=== PATIENT | female | born 1980 | race Caucasian/White ===

== ENCOUNTER 2017-09-11 10:20 | Day surgery (SDC) | payer OTHER ==
[2017-09-10 12:13] LABS: HEMATOCRIT 39.9 % (36.0-47.0); HEMOGLOBIN 13.3 g/dL (12.0-15.5); MEAN CORPUSCULAR HEMOGLOBIN 29.2 pg (27.0-33.4); MEAN CORPUSCULAR HGB CONC 33.3 g/dL (32.0-36.0); MEAN CORPUSCULAR VOLUME 88 fl (80-97); PLATELET COUNT 288 10^3/uL (150-450); RED BLOOD COUNT 4.55 10^6/uL (3.72-5.28); RED CELL DISTRIBUTION WIDTH 13.8 % (11.5-14.0); WHITE BLOOD COUNT 9.4 10^3/uL (4.0-10.5)
[2017-09-10 12:19] LABS: APPEARANCE,URINE SLIGHTLY-CLOUDY; BILIRUBIN,URINE NEGATIVE (NEGATIVE); COLOR,URINE YELLOW; GLUCOSE, URINE NEGATIVE (NEGATIVE); KETONES,URINE NEGATIVE (NEGATIVE); LEUKOCYTE ESTERASE,URINE TRACE (NEGATIVE); NITRITE,URINE NEGATIVE (NEGATIVE); PROTEIN,URINE NEGATIVE (NEGATIVE); URINE SPECIFIC GRAVITY 1.026; UROBILINOGEN,URINE NEGATIVE mg/dL (<2.0)
[~2017-09-11 10:20] MED LIST: LACTATED RINGERS 1000 ML IV PRN; LIDOCAINE 0.5% INJ-PF (5 MG/ML) 50 ML SDV SUBCUT PRN; LIDOCAINE 1%/EPINEPHRINE INJ 20 ML VIAL ONE
[2017-09-11] MEDS ORDERED: DIPHENHYDRAMINE HCL 50 MG/ML VIAL IV PRN (11:47)
[2017-09-11] MEDS ORDERED: PROMETHAZINE HCL INJ 25 MG/1 ML VIAL IV PRN ×2 (11:47)
[2017-09-11] MEDS ORDERED: ONDANSETRON HCL INJ/PF 4 MG/2 ML SDV IV PRN ×2 (11:47→13:42)
[2017-09-11] MEDS ORDERED: MEPERIDINE HCL/PF INJ 25 MG/1 ML DISP.SYRIN IV PRN (11:47)
[2017-09-11] MEDS ORDERED: FENTANYL CITRATE INJ/PF 100 MCG/2 ML AMPUL IV PRN ×3 (11:47)
[2017-09-11] MEDS ORDERED: EPHEDRINE SULFATE INJ 50 MG/1 ML AMPULE ONE (11:55)
[2017-09-11] MEDS ORDERED: MIDAZOLAM 2 MG/2 ML INJ ONE (11:55)
[2017-09-11] MEDS ORDERED: FENTANYL CITRATE INJ/PF 100 MCG/2 ML AMPUL ONE (11:55)
[2017-09-11] MEDS ORDERED: KETAMINE HCL INJ 500 MG/10 ML VIAL ONE (11:55)
[2017-09-11] MEDS ORDERED: DEXMEDETOMIDINE INJ 80 MCG/20 ML VIAL IV ONE (11:56)
[2017-09-11] MEDS ORDERED: PROPOFOL INJ 200 MG/20 ML VIAL IV ONE (11:56)
[2017-09-11] MEDS ORDERED: SCOPOLAMINE HYDROBROMIDE 1.5 MG PATCH.TD72 TD PRN ×3 (12:15→14:16)
[2017-09-11] MEDS ORDERED: HYDROMORPHONE HCL INJ/PF 2 MG/ML AMPULE IV PRN (14:01)
[2017-09-11] MEDS ORDERED: OXYCODONE-ACETAMINOPHEN 5-325 MG TABLET PO PRN ×2 (14:04)
[2017-09-11] MEDS ORDERED: IBUPROFEN 800 MG TABLET PO PRN (14:30)
[2017-09-11] MEDS ORDERED: GLYCOPYRROLATE INJ 0.4 MG/2 ML VIAL ONE (15:10)
[2017-09-11] MEDS ORDERED: ONDANSETRON HCL INJ/PF 4 MG/2 ML SDV ONE (15:10)
[2017-09-11] MEDS ORDERED: DEXAMETHASONE SOD PHOSPHATE INJ 4 MG/1 ML VIAL ONE (15:10)
[2017-09-11] MEDS ORDERED: METOCLOPRAMIDE HCL INJ/PF 10 MG/2 ML SDV ONE (15:10)
[2017-09-11] MEDS ORDERED: KETOROLAC TROMETHAMINE 60 MG/2 ML SDV ONE (15:10)
[2017-09-11] MEDS ORDERED: LIDOCAINE 2% INJ-PF (20 MG/ML) 2 ML AMPUL ONE (15:10)
[2017-09-11 15:44] VITALS: BP 119/64
[2017-09-11] MEDS ORDERED: PROMETHAZINE HCL INJ 25 MG/1 ML VIAL IM ONE (16:00)
[2017-09-11] MEDS ORDERED: ONDANSETRON HCL INJ/PF 4 MG/2 ML SDV IV ONE (16:00)
--- NOTE | 2017-09-12 06:45 | Operative Report ---
Operative Report DATE OF SURGERY: 09/11/17 PREOPERATIVE DIAGNOSIS: Dysfunctional Uterine Bleeding POSTOPERATIVE DIAGNOSIS: NIMCO, Endometrial polyp OPERATION: Paracervical block, Hysteroscopy, Dilation and Currettage, Novasure Endometrial Ablation SURGEON: TONIA HAYWARD ANESTHESIA: LMAC TISSUE REMOVED OR ALTERED: endometrial currettings and polyp COMPLICATIONS: none ESTIMATED BLOOD LOSS: 5 INTRAOPERATIVE FINDINGS: 1x2cm endometrial polyp on anterior surface of uterus. Cavity integrity test good. Uterine cavity length 5cm, width 3cm, Power 83. Ablation time 1min 47sec. On reevaluation with hysteroscope there was approx 2 cm area which was not ablated in the left uterine fundus however the polyp was no longer present and that site was well ablated PROCEDURE: Anesthesia: [Erica Dia MD, Julieth Bae CRNA] IVF: [1000ml] UOP: 100ml drained with straight cath prior to procedure Indications: [37yo with heavy menses for approximately 1 year. Now in the last 2 months has noted 2 or more menses in the month. She has had breast cancer times 2. BRCA negative x 2. Pap smear was normal in 01/2017 and endometrial biopsy was benign without evidence of polyp. has a vasectomy. She has been counseled regarding the procedure. She has also been counseled on the risks, benefits, alternatives to the procedure. She was counseled on the effectiveness of the procedure including amenorrhea versus only improvement of menses. She desires to proceed with planned procedure. ] Procedure: The patient was taken to the Operating Room where general anesthesia was obtained without difficulty. She was prepped and draped in the normal sterile fashion in the dorsal lithotomy position. Exam under anesthesia was performed and noted above. A speculum was placed in the vagina. The anterior cervix was grasped with a single-tooth tenaculum and paracervical block was performed with 8 mL of 1% lidocaine with epinephrine. Sequential dilators were then used to dilate the cervix to accommodate the Myosure hysteroscope. Uterine cavity length was measured 3 times with uterine cavity 5cm. The hysteroscope was then gently advanced into the uterine cavity in the usual fashion with visualization of the endometrial polyp as noted above and the hysteroscope removed since the polyp was small with limited attachment to the anterior uterine body. At this time gentle curettage was performed until a gritty texture was noted and polyp removed. At this time the Novasure endometrial ablation was performed in the usual fashion and was uncomplicated. All instruments were removed from the patient's cervix and vagina. Silver nitrate was applied to the tenaculum site for hemostasis. Sponge lap needle and instrument counts are correct 2. No perioperative antibiotics were given as is not indicated for this procedure. The patient tolerated the procedure well and was taken to the recovery area awake and in stable condition.
== END 2017-09-11 15:40 | disposition home or self-care (01) ==
LOC: OROUT 10:20
PROVIDERS: ATTEND Student in an Organized Health Care Education/Training Program
DX: N92.1 Excessive and frequent menstruation with irregular cycle (principal); N93.8 Other specified abnormal uterine and vaginal bleeding; N84.0 Polyp of corpus uteri; Z88.5 Allergy status to narcotic agent; Z79.899 Other long term (current) drug therapy
CPT/HCPCS: 36415; 85027; 81025; 81001; 88305 ×2; 58563; J2250; J1100; J1885; J3010; J3490 ×3; J2765; J2550; J2405; J2704; 952

== ENCOUNTER 2018-11-04 20:50 | Observation (INO) | payer OTHER ==
[2018-11-04 21:30] LABS: APPEARANCE,URINE CLEAR; BILIRUBIN,URINE NEGATIVE (NEGATIVE); COLOR,URINE YELLOW; GLUCOSE, URINE NEGATIVE (NEGATIVE); KETONES,URINE TRACE mg/dL (NEGATIVE); LEUKOCYTE ESTERASE,URINE NEGATIVE (NEGATIVE); NITRITE,URINE NEGATIVE (NEGATIVE); PROTEIN,URINE NEGATIVE (NEGATIVE); URINE SPECIFIC GRAVITY 1.006; UROBILINOGEN,URINE NEGATIVE mg/dL (<2.0)
[2018-11-04] MEDS ORDERED: ONDANSETRON HCL INJ/PF 4 MG/2 ML SDV IV ONE (22:36)
[2018-11-04] MEDS ORDERED: NORMAL SALINE 1000 ML 1,000 ML IV ONE (22:36)
[2018-11-04] MEDS ORDERED: MORPHINE SULFATE 10 MG/ML INJ IV ONE (22:36)
--- NOTE | 2018-11-04 22:39 | ER Document Report ---
ED Medical Screen (RME) - General Chief Complaint: Abdominal Pain Stated Complaint: ABDOMINAL PAIN Time Seen by Provider: 11/04/18 22:31 Primary Care Provider: CORRINE KRISHNAN FNP [Primary Care Provider] - Follow up as needed Notes: 38-year-old female coming in today chief complaint of abdominal pain started early this morning. Is progressively gotten worse. She is had some vomiting. She is got low-grade fever. I have treated and performed a rapid initial assessment of this patient. A comprehensive ED assessment and evaluation of the patient, analysis of test results and completion of medical decision making process will be conducted by additional ED providers. PHYSICAL EXAMINATION: GENERAL: Nontoxic LUNGS: No respiratory distress HEART: Well perfused ABDOMEN: Right lower quadrant tenderness Extremities: No cyanosis, clubbing, or edema b/l. NEUROLOGICAL: Normal speech, normal gait. PSYCH: Normal mood, normal affect. TRAVEL OUTSIDE OF THE [place] IN LAST 30 DAYS: No - Related Data Allergies/Adverse Reactions: acetaminophen [From Percocet] Allergy (Verified 11/04/18 21:00) ITCHING oxycodone [From Percocet] Allergy (Verified 11/04/18 21:00) ITCHING Past Medical History - Social History Chew tobacco use (# tins/day): No Frequency of alcohol use: None Drug Abuse: None - Past Medical History Cardiac Medical History: Denies: Hx Coronary Artery Disease, Hx Heart Attack, Hx Hypertension Pulmonary Medical History: Denies: Hx Asthma, Hx Bronchitis, Hx COPD, Hx Pneumonia Neurological Medical History: Denies: Hx Cerebrovascular Accident, Hx Seizures Renal/ Medical History: Denies: Hx Peritoneal Dialysis Musculoskeltal Medical History: Denies Hx Arthritis - Immunizations Hx Diphtheria, Pertussis, Tetanus Vaccination: Yes History of Influenza Vaccine for 02/2017 - 07/2017 Season: Yes Influenza Administration Date for 02/2017 - 07/2017 Season: 02/16/17 Physical Exam - Vital signs Vitals: Temp Pulse Resp BP Pulse Ox 100.2 F 99 16 132/78 H 100 11/04/18 21:26 11/04/18 21:26 11/04/18 21:26 11/04/18 21:26 11/04/18 21:26 Course - Vital Signs Vital signs: Temp Pulse Resp BP Pulse Ox 100.2 F 99 16 132/78 H 100 11/04/18 21:26 11/04/18 21:26 11/04/18 21:26 11/04/18 21:26 11/04/18 21:26 - Laboratory Laboratory results interpreted by me: 11/04/18 20:55 Urine Ketones TRACE H Doctor's Discharge - Discharge Referrals: CORRINE KRISHNAN FNP [Primary Care Provider] - Follow up as needed
--- NOTE | 2018-11-05 02:50 | ER Document Report ---
ED GI/ - General Chief Complaint: Abdominal Pain Stated Complaint: ABDOMINAL PAIN Time Seen by Provider: 11/04/18 22:31 Primary Care Provider: CORRINE KRISHNAN FNP [Primary Care Provider] - Follow up as needed Notes: This is a 38-year-old female to the emergency department with a chief complaint of right lower quadrant pain. Patient states that the pain began yesterday around the umbilicus and now has radiated to the right lower quadrant. Cannot get comfortable. Having a low-grade fever at home. No diarrhea. Some nausea and vomiting. Patient is complicated by the fact that she has had breast cancer with a double mastectomy, chemo and radiation. Last mastectomy was in 2013. As far she knows there is no metastatic lesions. TRAVEL OUTSIDE OF THE [place] IN LAST 30 DAYS: No - HPI Patient complains to provider of: Abdominal pain Onset: Yesterday Timing/Duration: Gradual Quality of pain: Throbbing Severity at maximum: Moderate Severity in ED: Moderate Pain Level: 4 Location: RLQ Vaginal bleeding (Compared to normal period): None - Related Data Allergies/Adverse Reactions: acetaminophen [From Percocet] Allergy (Verified 11/04/18 21:00) ITCHING oxycodone [From Percocet] Allergy (Verified 11/04/18 21:00) ITCHING Past Medical History - General Information source: Patient - Social History Smoking Status: Never Smoker Chew tobacco use (# tins/day): No Frequency of alcohol use: None Drug Abuse: None Lives with: Spouse/Significant other Family History: Reviewed & Not Pertinent Patient has suicidal ideation: No Patient has homicidal ideation: No - Past Medical History Cardiac Medical History: Denies: Hx Coronary Artery Disease, Hx Heart Attack, Hx Hypertension Pulmonary Medical History: Denies: Hx Asthma, Hx Bronchitis, Hx COPD, Hx Pneumonia Neurological Medical History: Denies: Hx Cerebrovascular Accident, Hx Seizures Renal/ Medical History: Denies: Hx Peritoneal Dialysis Malignancy Medical History: Reports: Hx Breast Cancer Musculoskeletal Medical History: Denies Hx Arthritis Surgical Hx: Other - Lumpectomy with double mastectomy - Immunizations Hx Diphtheria, Pertussis, Tetanus Vaccination: Yes Review of Systems - Review of Systems Notes: Constitutional: denies: Chills, Diaphoresis, +Fever, Malaise, Weakness EENT: denies: Eye discharge, Blurred vision, Tearing, Double vision, Nose congestion, Nose discharge, Throat swelling, Mouth pain Cardiovascular: denies: Palpitations, Heart racing, Orthopnea, Dyspnea, Chest pain Respiratory: denies: Cough, Hurts to breathe, Wheezing, Shortness of breath Gastrointestinal: Positive for abdominal pain, right lower quadrant abdominal pain, nausea and vomiting. No diarrhea. Genitourinary: denies: Burning, Dysuria, Discharge, Frequency, Flank pain, Hematuria Musculoskeletal: denies: Joint pain, Joint swelling, Muscle pain, Muscle stiffness, back pain Hematologic/Lymphatic: denies: Anemia, Easy bleeding, Easy bruising, Blood clots Neurological/Psychological: denies: Confusion, Dementia, Depression, Loss of consciousness Skin: No lesions, no masses, no skin breakdown, no abscesses Physical Exam - Vital signs Vitals: Temp Pulse Resp BP Pulse Ox 100.2 F 99 16 132/78 H 100 11/04/18 21:26 11/04/18 21:26 11/04/18 21:26 11/04/18 21:26 11/04/18 21:26 Interpretation: Normal, Tachycardic - General General appearance: Appears well, Alert - HEENT Head: Normocephalic, Atraumatic Eyes: Normal Pupils: PERRL - Respiratory Respiratory status: No respiratory distress Chest status: Nontender Breath sounds: Normal Chest palpation: Normal - Cardiovascular Rhythm: Regular Heart sounds: Normal auscultation Murmur: No - Abdominal Inspection: Normal Distension: No distension Bowel sounds: Normal Tenderness: Tender, Guarding, Rebound Organomegaly: No organomegaly - Back Back: Normal, Nontender - Extremities General upper extremity: Normal inspection, Nontender, Normal color, Normal ROM, Normal temperature General lower extremity: Normal inspection, Nontender, Normal color, Normal ROM, Normal temperature, Normal weight bearing. No: Tahir's sign - Neurological Neuro grossly intact: Yes Cognition: Normal Orientation: AAOx4 [place] Coma Scale Eye Opening: Spontaneous [place] Coma Scale Verbal: Oriented [place] Coma Scale Motor: Obeys Commands Candy Coma Scale Total: 15 Speech: Normal Motor strength normal: LUE, RUE, LLE, RLE Sensory: Normal - Psychological Associated symptoms: Normal affect, Normal mood - Skin Skin Temperature: Warm Skin Moisture: Dry Skin Color: Normal Course - Re-evaluation Re-evalutation: 11/05/18 03:42 Laboratory 0611/04/18 11/05/18 20:55 20:55 00:56 WBC RBC Hgb Hct MCV MCH MCHC RDW Plt Count Seg Neutrophils % Lymphocytes % Monocytes % Eosinophils % Basophils % Absolute Neutrophils Absolute Lymphocytes Absolute Monocytes Absolute Eosinophils Absolute Basophils Sodium Cancelled Potassium Cancelled Chloride Cancelled Carbon Dioxide Cancelled Anion Gap Cancelled BUN Cancelled Creatinine Cancelled Est GFR ( Amer) Cancelled Est GFR (Non-Af Amer) Cancelled Glucose Cancelled Calcium Cancelled Total Bilirubin Cancelled Direct Bilirubin Cancelled Neonat Total Bilirubin Cancelled Neonat Direct Bilirubin Cancelled Neonat Indirect Bili Cancelled AST Cancelled ALT Cancelled Alkaline Phosphatase Cancelled Total Protein Cancelled Albumin Cancelled Urine Color YELLOW Urine Appearance CLEAR Urine pH 7.0 Ur Specific [place] 1.006 Urine Protein NEGATIVE Urine Glucose (UA) NEGATIVE Urine Ketones TRACE H Urine Blood NEGATIVE Urine Nitrite NEGATIVE Urine Bilirubin NEGATIVE Urine Urobilinogen NEGATIVE Ur Leukocyte Esterase NEGATIVE Urine WBC (Auto) 1 Urine RBC (Auto) 1 Squamous Epi Cells Auto <1 Urine Mucus (Auto) RARE Urine Ascorbic Acid NEGATIVE Urine HCG, Qual NEGATIVE 11/05/18 11/05/18 03:00 03:00 WBC 14.6 H RBC 4.33 Hgb 12.7 Hct 38.5 MCV 89 MCH 29.4 MCHC 33.0 RDW 14.2 H Plt Count 220 Seg Neutrophils % 84.5 H Lymphocytes % 7.5 L Monocytes % 7.3 Eosinophils % 0.1 Basophils % 0.6 Absolute Neutrophils 12.4 H Absolute Lymphocytes 1.1 Absolute Monocytes 1.1 Absolute Eosinophils 0.0 Absolute Basophils 0.1 Sodium 139.3 Potassium 3.6 Chloride 105 Carbon Dioxide 25 Anion Gap 9 BUN 6 L Creatinine 0.61 Est GFR ( Amer) > 60 Est GFR (Non-Af Amer) > 60 Glucose 114 H Calcium 9.4 Total Bilirubin 0.6 Direct Bilirubin 0.2 Neonat Total Bilirubin Not Reportable Neonat Direct Bilirubin Not Reportable Neonat Indirect Bili Not Reportable AST 13 L ALT 26 Alkaline Phosphatase 50 Total Protein 6.9 Albumin 4.4 Urine Color Urine Appearance Urine pH Ur Specific [place] Urine Protein Urine Glucose (UA) Urine Ketones Urine Blood Urine Nitrite Urine Bilirubin Urine Urobilinogen Ur Leukocyte Esterase Urine WBC (Auto) Urine RBC (Auto) Squamous Epi Cells Auto Urine Mucus (Auto) Urine Ascorbic Acid Urine HCG, Qual Patient is extremely tender in the right lower quadrant with his WBC count was elevated and a low-grade fever. Clinically patient has appendicitis. General surgery has been called. I am proceeding with a CT scan with oral and IV contrast she has had a malignancy and eating better images to make sure that she has no metastasis or other pathological etiology can be ruled out more effectively. Dr. Hazel agrees with this plan as well. I am medicating at this time with antibiotics, IV fluids, pain medication and nausea medicine. Patient has been signed over to my colleague Dr. Saleh for review of CT scan and consultation with surgery after results - Vital Signs Vital signs: Temp Pulse Resp BP Pulse Ox 100.2 F 99 16 132/78 H 100 11/04/18 21:26 11/04/18 21:26 11/04/18 21:26 11/04/18 21:26 11/04/18 21:26 - Laboratory Result Diagrams: 11/05/18 03:00 11/05/18 03:00 Laboratory results interpreted by me: 11/04/18 11/05/18 11/05/18 20:55 03:00 03:00 WBC 14.6 H RDW 14.2 H Seg Neutrophils % 84.5 H Lymphocytes % 7.5 L Absolute Neutrophils 12.4 H BUN 6 L Glucose 114 H AST 13 L Urine Ketones TRACE H Discharge - Discharge Clinical Impression: Right lower quadrant pain Condition: Good Disposition: ADMITTED INPATIENT Referrals: CORRINE KRISHNAN FNP [Primary Care Provider] - Follow up as needed
[2018-11-05 03:15] LABS: ABSOLUTE BASOPHILS # (AUTO) 0.1 10^3/uL (0.0-0.2); ABSOLUTE LYMPHOCYTES (AUTO) 1.1 10^3/uL (0.5-4.7); ABSOLUTE MONOCYTES (AUTO) 1.1 10^3/uL (0.1-1.4); ABSOLUTE NEUT (AUTO) 12.4 10^3/uL (1.7-8.2); BASOPHILS % (AUTO) 0.6 % (0-2); EOSINOPHILS % (AUTO) 0.1 % (0-6); HEMATOCRIT 38.5 % (36.0-47.0); HEMOGLOBIN 12.7 g/dL (12.0-15.5); LYMPHOCYTES % (AUTO) 7.5 % (13-45); MEAN CORPUSCULAR HEMOGLOBIN 29.4 pg (27.0-33.4); MEAN CORPUSCULAR VOLUME 89 fl (80-97); MONOCYTES % (AUTO) 7.3 % (3-13); PLATELET COUNT 220 10^3/uL (150-450); RED BLOOD COUNT 4.33 10^6/uL (3.72-5.28); RED CELL DISTRIBUTION WIDTH 14.2 % (11.5-14.0); SEGMENTED NEUTROPHILS % (AUTO) 84.5 % (42-78); TOTAL CELLS COUNTED % (AUTO) 100 %; WHITE BLOOD COUNT 14.6 10^3/uL (4.0-10.5)
[2018-11-05 03:37] LABS: ALANINE AMINOTRANSFERASE 26 U/L (9-52); ALBUMIN 4.4 g/dL (3.5-5.0); ALKALINE PHOSPHATASE 50 U/L (38-126); ANION GAP 9 (5-19); ASPARTATE AMINO TRANSFERASE 13 U/L (14-36); BILIRUBIN,DIRECT 0.2 mg/dL (0.0-0.4); BILIRUBIN,TOTAL 0.6 mg/dL (0.2-1.3); BLOOD UREA NITROGEN 6 mg/dL (7-20); CALCIUM 9.4 mg/dL (8.4-10.2); CARBON DIOXIDE 25 mmol/L (22-30); CHLORIDE 105 mmol/L (98-107); GLUCOSE 114 mg/dL (75-110); POTASSIUM 3.6 mmol/L (3.6-5.0); SODIUM 139.3 mmol/L (137-145); TOTAL PROTEIN 6.9 g/dL (6.3-8.2)
[2018-11-05] MEDS ORDERED: ONDANSETRON HCL INJ/PF 4 MG/2 ML SDV IV ONE ×2 (03:38→05:03)
[2018-11-05] MEDS ORDERED: DEXTROSE 5%-1/2 NORMAL SALINE 1,000 ML IV ONE (03:38)
[2018-11-05] MEDS ORDERED: HYDROMORPHONE HCL INJ/PF 2 MG/ML AMPULE IV PRN (03:39)
[2018-11-05] MEDS ORDERED: CEFOXITIN 1 GM/D5W RTU 1 GM/50 ML RTUPB IV ONE (03:42)
--- NOTE | 2018-11-05 05:48 | ER Document Report ---
Entered by EDUARDO PATINO SCRIBE 11/05/18 0541 Acting as scribe for:DAVONTE BRONSON MD ED General - General Chief Complaint: Abdominal Pain Stated Complaint: ABDOMINAL PAIN Time Seen by Provider: 11/04/18 22:31 Primary Care Provider: CORRINE KRISHNAN FNP [Primary Care Provider] - Follow up as needed Mode of Arrival: Ambulatory Information source: Patient Notes: Patient is a 38 year old female with a history of DCIS (chemo, radiation and double mastectomy) presents to the emergency department complaining of abdominal pain with associated nausea and vomiting onset yesterday. Patient states she woke up around 0300 with periumbilical abdominal pain. She states throughout the day she developed nausea and vomiting and the pain migrated to her RLQ. She denies any other focal symptoms. TRAVEL OUTSIDE OF THE [place] IN LAST 30 DAYS: No - Related Data Allergies/Adverse Reactions: acetaminophen [From Percocet] Allergy (Verified 11/04/18 21:00) ITCHING oxycodone [From Percocet] Allergy (Verified 11/04/18 21:00) ITCHING Past Medical History - General Information source: Patient - Social History Smoking Status: Never Smoker Chew tobacco use (# tins/day): No Frequency of alcohol use: None Drug Abuse: None Lives with: Spouse/Significant other Family History: Reviewed & Not Pertinent Patient has suicidal ideation: No Patient has homicidal ideation: No Malignancy Medical History: Reports: Hx Breast Cancer - DCIS, lumpectomy, double mastectomy Past Surgical History: Reports: Hx Breast Surgery - Lumpectomy with double mastectomy - Immunizations Hx Diphtheria, Pertussis, Tetanus Vaccination: Yes Review of Systems - Review of Systems Constitutional: No symptoms reported EENT: No symptoms reported Cardiovascular: No symptoms reported Gastrointestinal: See HPI, Abdominal pain, Nausea, Vomiting Genitourinary: No symptoms reported Female Genitourinary: No symptoms reported Musculoskeletal: No symptoms reported Skin: No symptoms reported Hematologic/Lymphatic: No symptoms reported Neurological/Psychological: No symptoms reported -: Yes All other systems reviewed and negative Physical Exam - Vital signs Vitals: Temp Pulse Resp BP Pulse Ox 100.2 F 99 16 132/78 H 100 11/04/18 21:26 11/04/18 21:26 11/04/18 21:26 11/04/18 21:26 11/04/18 21:26 - Notes Notes: GENERAL: Alert, interacts well. No acute distress. HEAD: Normocephalic, atraumatic. EYES: Pupils equal, round, and reactive to light. Extraocular movements intact. ENT: Oral mucosa moist, tongue midline. NECK: Full range of motion. Supple. Trachea midline. LUNGS: Clear to auscultation bilaterally, no wheezes, rales, or rhonchi. No respiratory distress. HEART: Regular rate and rhythm. No murmurs, gallops, or rubs. ABDOMEN: Soft. Right lower quadrant tenderness with guarding and rebound. Bowel sounds are decreased. EXTREMITIES: Moves all 4 extremities spontaneously. NEUROLOGICAL: Alert and oriented x3. Normal speech. PSYCH: Normal affect, normal mood. SKIN: Warm, dry, normal turgor. No rashes or lesions noted. Course - Re-evaluation Re-evalutation: 11/05/18 05:44 Patient was signed out to me by Dr. Wilson. - Vital Signs Vital signs: Temp Pulse Resp BP Pulse Ox 98.3 F 88 16 97/40 L 98 11/05/18 03:00 11/05/18 03:00 11/05/18 03:00 11/05/18 03:00 11/05/18 03:00 - Laboratory Result Diagrams: 11/05/18 03:00 11/05/18 03:00 Laboratory results interpreted by me: 11/04/18 11/05/18 11/05/18 20:55 03:00 03:00 WBC 14.6 H RDW 14.2 H Seg Neutrophils % 84.5 H Lymphocytes % 7.5 L Absolute Neutrophils 12.4 H BUN 6 L Glucose 114 H AST 13 L Urine Ketones TRACE H - Diagnostic Test Radiology reviewed: Image reviewed, Reports reviewed - CT scan shows acute a ppendicitis - Consults Dr. Hazel Time consulted: 06:00 Consulted provider: will come to ER Discharge - Discharge Clinical Impression: Acute appendicitis Qualifiers: Acute appendicitis type: with localized peritonitis Appendicitis gangrene presence: unspecified whether gangrene present Appendicitis perforation presence: without perforation Appendicitis abscess presence: without abscess Qualified Code(s): K35.30 - Acute appendicitis with localized peritonitis, without perforation or gangrene Condition: Good Disposition: ADMITTED INPATIENT Admitting Provider: Surgicalist Unit Admitted: Surgical Floor Referrals: CORRINE KRISHNAN FNP [Primary Care Provider] - Follow up as needed Scribe Attestation: 11/05/18 06:08 I personally performed the services described in the documentation, reviewed and edited the documentation which was dictated to the scribe in my presence, and it accurately records my words and actions. I personally performed the services described in the documentation, reviewed and edited the documentation which was dictated to the scribe in my presence, and it accurately records my words and actions.
--- NOTE | 2018-11-05 06:05 | RADIOLOGY REPORT (SQ) ---
EXAM DESCRIPTION: CT ABDOMEN PELVIS WITH IV CONTRAST COMPLETED DATE/TME: 11/05/2018 00:00 CLINICAL HISTORY: 38 years Female, rlq pain. HCG NEGATIVE Comparison: None. Technique: IV and oral contrast. Coronal and sagittal reformat. This exam was performed according to our departmental dose-optimization program, which includes automated exposure control, adjustment of the mA and/or kV according to patient size and/or use of iterative reconstruction technique. [facility]: Dose Right [facility]: CareDose [facility]: Dose Right [facility]: Teradose 4D [facility]: angelcam LIMITATIONS: None Findings: Acute appendicitis includes an inflamed, 1.2 cm diameter fluid filled appendix, appendicolith, mild lymphadenopathy, and no significant ascites. No abscess. No pneumoperitoneum. Mammary prostheses. Small L4-L5 disc bulge. No bowel obstruction. No hydronephrosis or hydroureter. No renal/ureteral stone. No evidence of abdominal aortic aneurysm. Inferior thorax, liver, gallbladder, pancreas, spleen, adrenals, renal system, gastrointestinal tract, pelvic organs, lymphatics, vasculature, and musculoskeleton appear otherwise unremarkable. IMPRESSION: Acute appendicitis.
[2018-11-05] MEDS ORDERED: FENTANYL CITRATE INJ/PF 100 MCG/2 ML AMPUL IV ONE (06:09)
--- NOTE | 2018-11-05 06:49 | PDOC H&P ---
History of Present Illness Admission Date/PCP: MARVEL HERNANDEZ Patient complains of: Right lower quadrant abdominal pain History of Present Illness: CECI SLATER is a 38 year old female with a 24-hour history of epigastric abdominal pain that has migrated to her right lower quadrant. It is 8/10 in intensity. It is sharp and stabbing. She has experienced nausea and vomiting with it. The pain is unrelenting. Nothing makes it better. Movement and palpa tion make it worse. She denies chest pain, shortness of breath, fevers, chills, dizziness, blurry vision, hearing difficulty, headache, orthostasis. The patient was evaluated in the emergency department where CT scan was performed. I was then consulted for definitive surgical care. Past Medical History Cardiac Medical History: Denies: Coronary Artery Disease, Myocardial Infarction, Hypertension Pulmonary Medical History: Denies: Asthma, Bronchitis, Chronic Obstructive Pulmonary Disease (COPD), Pneumonia Neurological Medical History: Denies: Seizures Malignancy Medical History: Reports: Breast Cancer - DCIS, lumpectomy, double mastectomy Musculoskeltal Medical History: Denies: Arthritis Hematology: Denies: Anemia Past Surgical History Past Surgical History: Reports: Mastectomy - With reconstruction Social History Lives with: Spouse/Significant other Smoking Status: Never Smoker Frequency of Alcohol Use: None Hx Recreational Drug Use: No Drugs: None Hx Prescription Drug Abuse: No Family History Family History: Reviewed & Not Pertinent Parental Family History Reviewed: Yes Children Family History Reviewed: Yes Sibling(s) Family History Reviewed.: Yes Medication/Allergy Home Medications: Bupropion HCl [Wellbutrin Sr] 150 mg PO DAILY 09/10/17 Allergies/Adverse Reactions: acetaminophen [From Percocet] Allergy (Verified 11/04/18 21:00) ITCHING oxycodone [From Percocet] Allergy (Verified 11/04/18 21:00) ITCHING Review of Systems Constitutional: PRESENT: anorexia, fever(s). ABSENT: chills, fatigue Eyes: ABSENT: visual disturbances Ears: ABSENT: hearing changes Nose, Mouth, and Throat: ABSENT: mouth pain, sore throat Cardiovascular: ABSENT: chest pain, dyspnea on exertion Respiratory: ABSENT: cough, dyspnea Gastrointestinal: PRESENT: abdominal pain, nausea, vomiting. ABSENT: heartburn, hematemesis, hematochezia, melena Genitourinary: ABSENT: dysuria Musculoskeletal: ABSENT: back pain Integumentary: ABSENT: pruritus, rash Neurological: ABSENT: confusion, convulsions, dizziness Psychiatric: PRESENT: anxiety, depression Endocrine: ABSENT: cold intolerance, heat intolerance Hematologic/Lymphatic: ABSENT: easy bleeding, easy bruising Physical Exam Vital Signs: Temp Pulse Resp BP Pulse Ox 98.3 F 88 16 97/40 L 98 11/05/18 03:00 11/05/18 03:00 11/05/18 03:00 11/05/18 03:00 11/05/18 03:00 Intake & Output 11/03/18 11/04/18 11/05/18 06:59 06:59 06:59 Intake Total 1000 Balance 1000 Weight 68.9 kg General appearance: PRESENT: no acute distress, cooperative Head exam: PRESENT: atraumatic, normocephalic Eye exam: PRESENT: EOMI, PERRLA. ABSENT: scleral icterus Mouth exam: PRESENT: neck supple Teeth exam: ABSENT: poor dentation Neck exam: ABSENT: meningismus, tenderness, thyromegaly, tracheal deviation Respiratory exam: PRESENT: clear to auscultation katherine, unlabored. ABSENT: chest wall tenderness, tachypnea, wheezes Cardiovascular exam: PRESENT: RRR Pulses: PRESENT: normal radial pulses Vascular exam: PRESENT: normal capillary refill GI/Abdominal exam: PRESENT: rebound - Mild, soft, tenderness - Right lower quadrant. ABSENT: distended Rectal exam: PRESENT: deferred Extremities exam: ABSENT: clubbing Musculoskeletal exam: ABSENT: deformity Neurological exam: PRESENT: alert, awake, oriented to person, oriented to place, oriented to time, oriented to situation Psychiatric exam: ABSENT: agitated, anxious, depressed Focused psych exam: ABSENT: delusional Skin exam: ABSENT: cyanosis, erythema, jaundice Results Laboratory Results: 11/05/18 03:00 11/05/18 03:00 11/04/18 11/05/18 11/05/18 20:55 00:56 03:00 WBC 14.6 H RBC 4.33 Hgb 12.7 Hct 38.5 MCV 89 MCH 29.4 MCHC 33.0 RDW 14.2 H Plt Count 220 Seg Neutrophils % 84.5 H Lymphocytes % 7.5 L Monocytes % 7.3 Eosinophils % 0.1 Basophils % 0.6 Absolute Neutrophils 12.4 H Absolute Lymphocytes 1.1 Absolute Monocytes 1.1 Absolute Eosinophils 0.0 Absolute Basophils 0.1 Sodium Cancelled Potassium Cancelled Chloride Cancelled Carbon Dioxide Cancelled Anion Gap Cancelled BUN Cancelled Creatinine Cancelled Est GFR ( Amer) Cancelled Est GFR (Non-Af Amer) Cancelled Glucose Cancelled Calcium Cancelled Total Bilirubin Cancelled AST Cancelled ALT Cancelled Alkaline Phosphatase Cancelled Total Protein Cancelled Albumin Cancelled Urine Color YELLOW Urine Appearance CLEAR Urine pH 7.0 Ur Specific [place] 1.006 Urine Protein NEGATIVE Urine Glucose (UA) NEGATIVE Urine Ketones TRACE H Urine Blood NEGATIVE Urine Nitrite NEGATIVE Ur Leukocyte Esterase NEGATIVE Urine WBC (Auto) 1 Urine RBC (Auto) 1 11/05/18 03:00 WBC RBC Hgb Hct MCV MCH MCHC RDW Plt Count Seg Neutrophils % Lymphocytes % Monocytes % Eosinophils % Basophils % Absolute Neutrophils Absolute Lymphocytes Absolute Monocytes Absolute Eosinophils Absolute Basophils Sodium 139.3 Potassium 3.6 Chloride 105 Carbon Dioxide 25 Anion Gap 9 BUN 6 L Creatinine 0.61 Est GFR ( Amer) > 60 Est GFR (Non-Af Amer) > 60 Glucose 114 H Calcium 9.4 Total Bilirubin 0.6 AST 13 L ALT 26 Alkaline Phosphatase 50 Total Protein 6.9 Albumin 4.4 Urine Color Urine Appearance Urine pH Ur Specific [place] Urine Protein Urine Glucose (UA) Urine Ketones Urine Blood Urine Nitrite Ur Leukocyte Esterase Urine WBC (Auto) Urine RBC (Auto) Impressions: Abdomen/Pelvis CT 11/05/18 00:00 IMPRESSION: Acute appendicitis. Assessment & Plan - Diagnosis (1) Acute appendicitis Qualifiers: Acute appendicitis type: with localized peritonitis Appendicitis gangrene presence: unspecified whether gangrene present Appendicitis perforation presence: without perforation Appendicitis abscess presence: without abscess Qualified Code(s): K35.30 - Acute appendicitis with localized peritonitis, w ithout perforation or gangrene Is this a current diagnosis for this admission?: Yes - Plan Summary Plan Summary: This is a 38-year-old female with acute appendicitis. She has history, physical, and laboratory findings consistent with the diagnosis. I reviewed her CT scan. She has an inflamed appendix, without sign of obvious perforation or abscess. I have discussed surgical intervention with her. She has agreed to laparoscopic versus open appendectomy. Risks/benefits discussed, informed consent obtained, and all questions answered.
[2018-11-05] MEDS ORDERED: ONDANSETRON HCL INJ/PF 4 MG/2 ML SDV IV PRN ×2 (06:57→10:33)
[2018-11-05] MEDS ORDERED: BUPIVACAINE HCL 0.25 % INJ/PF (2.5 MG/1 ML) 30 ML VIAL ONE (08:39)
[2018-11-05] MEDS ORDERED: SCOPOLAMINE HYDROBROMIDE 1.5 MG PATCH.TD72 ONE (09:44)
[2018-11-05] MEDS ORDERED: KETOROLAC TROMETHAMINE 60 MG/2 ML SDV ONE (09:57)
[2018-11-05] MEDS ORDERED: PROMETHAZINE HCL INJ 25 MG/1 ML VIAL ONE (09:58)
[2018-11-05] MEDS ORDERED: DEXAMETHASONE SOD PHOSPHATE INJ 4 MG/1 ML VIAL ONE (09:58)
[2018-11-05] MEDS ORDERED: ONDANSETRON HCL INJ/PF 4 MG/2 ML SDV ONE (09:58)
[2018-11-05] MEDS ORDERED: PROPOFOL INJ 200 MG/20 ML VIAL IV ONE (09:58)
[2018-11-05] MEDS ORDERED: MIDAZOLAM 2 MG/2 ML INJ ONE (09:58)
[2018-11-05] MEDS ORDERED: FENTANYL CITRATE INJ/PF 100 MCG/2 ML AMPUL ONE (09:58)
[2018-11-05] MEDS ORDERED: DIPHENHYDRAMINE HCL 50 MG/ML VIAL IV PRN (10:33)
[2018-11-05] MEDS ORDERED: MEPERIDINE HCL/PF INJ 25 MG/1 ML DISP.SYRIN IV PRN (10:33)
[2018-11-05] MEDS ORDERED: FENTANYL CITRATE INJ/PF 100 MCG/2 ML AMPUL IV PRN ×3 (10:33)
[2018-11-05] MEDS ORDERED: MORPHINE SULFATE 10 MG/ML INJ IV PRN (10:33)
[2018-11-05] MEDS ORDERED: PROMETHAZINE HCL INJ 25 MG/1 ML VIAL IV PRN (10:33)
--- NOTE | 2018-11-05 12:44 | OPERATIVE REPORT E ---
Operative Report NAME: CECI SLATER : 1980 AGE: 38Y DATE OF SURGERY: 11/05/2018 ROOM: ED09 PREOPERATIVE DIAGNOSIS: ACUTE APPENDICITIS. POSTOPERATIVE DIAGNOSIS: ACUTE GANGRENOUS APPENDICITIS. OPERATION: Laparoscopic appendectomy. SURGEON: ADAL GUERRA M.D. ANESTHESIA: General. INDICATION: This is a 38-year-old female complaining of right lower quadrant pains since yesterday. She had a CAT scan of the abdomen early this morning which showed acute appendicitis. Her white count was slightly elevated and markedly tender in the right lower quadrant. The rest of the abdomen is soft. PROCEDURE: After adequate general anesthesia, patient was placed in the supine position and the abdomen prepped and draped in the usual sterile fashion. Appropriate timeout was called. Next, an infraumbilical incision was made and the fascia identified and opened and Eckert trocar inserted into the abdominal cavity. CO2 insufflated to a pressure of 15 mmHg of mercury and 2 other trocars were placed. A 5 mm in the suprapubic and a 12 mm in the left lower quadrant under direct vision. The appendix was then noted to be adherent to the right lateral gutter area and this was bluntly released with a grasper. The tip of the appendix appears to be not involved but the main part of the appendix appears to be gangrenous. With the use of a [place] dissector a window was placed close to the junction of the appendix and the cecum. Next, the mesoappendix was then cauterized and divided with the use of Harmonic melissa. Adequate hemostasis noted. Next, the appendix was then lifted up and with the use of a 45 mm endo LAVERNE, the base of the appendix close to the cecum which was not involved, was then stapled and divided. Appendix was then placed in an endo bag and pulled out through the umbilical port area. Next, the Eckert trocar was placed back and the stump of the appendix inspected. No evidence of bleeding noted. No evidence of any fluid or bleeding and therefore not irrigated. Next, all of the trocars removed and CO2 allowed to come out of the trocar sites. The fascial defect was then closed with a figure-of-8 suture using 0-Vicryl and the 2 stay sutures that were placed earlier were then tied together to reinforce the closure. The subcutaneous area was irrigated with saline solution. Next, all of the skin incisions were then closed with running subcuticular 4-0 Vicryl undyed. Steri-Strips placed over the operative site. Needle, instruments and sponge count all correct and estimated blood loss was no more than 5 mL. Patient brought to the recovery room and extubated in satisfactory condition. DICTATING PHYSICIAN: ADAL GUERRA M.D. [id number] PHY#: [id number] ID: [id number] JOB#: [id number] ACCT: [id number] cc:ADAL GUERRA M.D. > MTDD
[2018-11-05] MEDS: MORPHINE SULFATE 10 MG/ML INJ IV PRN ×2 (12:49→20:55)
[2018-11-05] MEDS: NORMAL SALINE 1000 ML 1,000 ML IV PRN (12:50)
[2018-11-05] MEDS ORDERED: CEFOXITIN SODIUM 2 GM in DEXTROSE 5%-WATER 100 ML IV SCH (14:00)
[2018-11-05] MEDS ORDERED: ROCURONIUM BROMIDE INJ 50 MG/5 ML VIAL IV ONE (16:10)
[2018-11-05] MEDS ORDERED: SUCCINYLCHOLINE CHLORIDE INJ 200 MG/10 ML VIAL ONE (16:10)
[2018-11-05] MEDS: KETOROLAC TROMETHAMINE INJ/PF 30 MG/1 ML SDV IV SCH (18:13)
[2018-11-05] MEDS: PIPERACILLIN SODIUM/TAZOBACTAM 3.375 GM in NORMAL SALINE 100 ML IV SCH (18:14)
[2018-11-06] MEDS: PIPERACILLIN SODIUM/TAZOBACTAM 3.375 GM in NORMAL SALINE 100 ML IV SCH ×2 (00:16→05:33)
[2018-11-06] MEDS: NORMAL SALINE 1000 ML 1,000 ML IV PRN (00:16)
[2018-11-06] MEDS: KETOROLAC TROMETHAMINE INJ/PF 30 MG/1 ML SDV IV SCH ×2 (00:16→05:32)
[2018-11-06 10:59] VITALS: BP 97/40
--- NOTE | 2018-11-06 14:14 | DISCHARGE SUMMARY E ---
Discharge Summary NAME: CECI SLATER : 1980 AGE: 38Y ADMITTED: 11/05/2018 DISCHARGED: 11/06/2018 PROCEDURE DONE: Laparoscopic appendectomy. FINAL DIAGNOSIS: Acute appendicitis, appendectomy done 11/05/2018. SURGEON: Dr. Cardona [facility] COURSE: This is a 38-year-old female complaining of abdominal pain for the pasts 24 hours prior to admission. When seen in the ED her pain was localized in the right lower quadrant and a CAT scan showed acute appendicitis. She was then taken to the OR on the same day of admission. On laparoscopic appendectomy she was noted to have a gangrenous acute appendicitis. Postoperatively she did very well passing flatus and tolerating diet. She was then discharged improved on 11/06/2018. The patient will be followed up in the surgical clinic in 2 weeks. She was given a prescription for Toradol 10 mg p.o. q.6 hours p.r.n. for pain. She was advised not to do any lifting more than 10 to 15 pounds until seen in the clinic. DICTATING PHYSICIAN: ADAL CARDONA M.D. [id number] PHY#: [id number] ID: [id number] JOB#: [id number] ACCT: [id number] cc:Kane MOSER M.D. >
== END 2018-11-06 11:06 | disposition home or self-care (01) ==
LOC: ER 20:50 → INTOOBSV 11-05 06:37 → EH 11-05 06:37 → 4N 11-05 12:30
PROVIDERS: ADMIT Surgery; ATTEND Surgery
PROC: 0DTJ4ZZ Resection of Appendix, Percutaneous Endoscopic Approach (ICD-10-PCS; principal; 2018-11-05 10:30)
DX: K35.31 Acute appendicitis with localized peritonitis and gangrene, without perforation (principal); K38.1 Appendicular concretions; Z85.3 Personal history of malignant neoplasm of breast; Z90.13 Acquired absence of bilateral breasts and nipples; Z88.8 Allergy status to other drugs, medicaments and biological substances
CPT/HCPCS: 36415; 74177; 80053; 81001; 81025; 840; 85025; 87040; 87086; 88304; 96361; 96365; 96366; 96375; 96376; 99285; G0378; J0330; J0694; J1100; J1170; J1885; J2250; J2270; J2405; J2543; J2550; J2704; J3010; J3490; J7030; J7050